=== PATIENT | female | born 1995 | race Hispanic/Latino ===

== ENCOUNTER → 2024-11-25 07:22 | Outpatient (REF) | payer OTHER, SELFPAY ==
[2024-11-25 08:25] LABS: % Basophils 0.4 % (0-2); % Immature Granulocytes 0.6 % (0-0.5); % Lymphocytes 27.1 % (20.5-51.1); % Monocytes 7.2 % (1.7-9.3); % Neutrophils 62.7 % (42.2-75.2); Absolute Eosinophils 0.1 10^3/uL (0-0.7); Absolute Lymphocytes 1.9 10^3/uL (1.2-3.4); Absolute Monocytes 0.5 10^3/uL (0.1-0.6); Absolute Neutrophils 4.5 10^3/uL (1.4-6.5); Hematocrit 38.6 % (37.0-47.0); Hemoglobin 12.8 g/dL (12.0-16.0); Mean Corp Hgb Conc. 33.2 g/dL (33.0-37.0); Mean Corpuscular Hgb 29.4 pg (27.0-31.0); Mean Corpuscular Volume 88.5 fL (81.0-99.0); Mean Platelet Volume 10.2 fL (7.4-10.4); Nucleated Red Blood Cells % 0 %; Platelet Count 236 10^3/uL (130-400); Red Blood Cell Count 4.36 10^6/uL (4.20-5.40); White Blood Cell Count 7.1 10^3/uL (4.8-10.8)
[2024-11-25 08:59] LABS: ALT (SGPT) 20 U/L (0-35); AST (SGOT) 20 U/L (14-36); Albumin 3.9 g/dl (3.5-5.0); Alkaline Phosphatase 77 U/L (38-126); Blood Urea Nitrogen 11 mg/dl (7-17); Calcium 8.9 mg/dl (8.4-10.2); Carbon Dioxide 28 mmol/L (22-30); Chloride 105 mmol/L (98-107); Glucose 98 mg/dl (70-99); Potassium 4.3 mmol/L (3.5-5.1); Sodium 141 mmol/L (135-145); Total Bilirubin 0.4 mg/dl (0.2-1.3); Total Protein 6.7 g/dl (6.3-8.2); eGFR > 60.00
[2024-11-25 09:21] LABS: TSH Reflex To Free T4 1.41 uIU/ml (0.47-4.68)
== END ==
LOC: REG 07:22
PROVIDERS: ATTENDING PHYSICIAN Nurse Practitioner Family
DX: R51.9 Headache, unspecified (principal)
CPT/HCPCS: 36415; 80053; 84443; 85025

== ENCOUNTER → 2024-12-05 08:20 | Outpatient (REF) | payer OTHER, SELFPAY ==
[2024-12-07 03:33] LABS: H. pylori Antigen, Fecal Negative (Negative)
== END ==
LOC: CLINIC 08:20
PROVIDERS: ATTENDING PHYSICIAN Nurse Practitioner Family
DX: R51.9 Headache, unspecified (principal)
CPT/HCPCS: 87338

== ENCOUNTER → 2024-12-09 18:07 | Outpatient (REF) | payer OTHER, SELFPAY ==
[2024-12-12 05:31] LABS: HPV, High Risk Not Detected; HPV, High Risk Source Cervical
== END ==
LOC: CLINIC 18:07
PROVIDERS: ATTENDING PHYSICIAN Nurse Practitioner Family
DX: Z01.419 Encounter for gynecological examination (general) (routine) without abnormal findings (principal)
CPT/HCPCS: 87491; 87591; 87624